=== PATIENT | female | born 1965 ===

== ENCOUNTER 2017-06-29 12:58 | Emergency (ER) | payer OTHER ==
[2017-06-29 13:02] VITALS: RESP 18
[2017-06-29 13:40] LABS: BASO # 0.1 K/uL (0.0-0.2); BASO % 0.8 % (0.0-2.0); EOS # 0.2 K/uL (0.0-0.7); EOS % 2.5 % (0.0-4.0); LYMPH # 1.6 K/uL (1.0-4.3); MEAN CELL VOLUME 88.8 fL (81.0-99.0); MEAN CORPUSCULAR HEMOGLOBIN 30.4 pg (27.0-31.0); MEAN CORPUSCULAR HGB CONC 34.3 g/dL (33.0-37.0); MEAN PLATELET VOLUME 9.3 fL (7.2-11.7); MONO # 0.8 K/uL (0.0-0.8); MONO % 10.4 % (0.0-10.0); NEUT # 4.7 K/uL (1.8-7.0); NEUT % 64.3 % (50.0-75.0); RBC 4.93 Mil/uL (3.80-5.20); RED CELL DISTRIBUTION WIDTH 14.2 % (11.5-14.5); WHITE BLOOD COUNT 7.4 K/uL (4.8-10.8)
[2017-06-29 13:51] LABS: ALB/GLOB RATIO 1.2 (1.0-2.1); ALBUMIN 4.7 g/dL (3.5-5.0); ALT/SGPT 17 U/L (9-52); AST/SGOT 24 U/L (14-36); BLOOD UREA NITROGEN 11 mg/dL (7-17); CALCIUM 9.5 mg/dl (8.6-10.4); GFR AFRICAN-AMERICAN > 60; GFR NON-AFRICAN AMERICAN > 60; LIPASE 106 U/L (23-300)
[2017-06-29 13:56] LABS: HCG,QUALITATIVE URINE NEGATIVE (NEGATIVE); SQUAMOUS EPITHIAL < 1 /hpf (0-5); URINE BACTERIA RARE (<OCC); URINE BILIRUBIN NEGATIVE (NEGATIVE); URINE BLOOD NEGATIVE (NEGATIVE); URINE CLARITY Clear (Clear); URINE COLOR Straw (YELLOW); URINE GLUCOSE (UA) NORMAL (Normal); URINE LEUKOCYTE ESTERASE NEG Leu/uL (Negative); URINE PROTEIN NEGATIVE (NEGATIVE); URINE UROBILINOGEN NORMAL mg/dL (0.2-1.0)
--- NOTE | 2017-06-29 14:13 | C.PDOC ---
History Of Present Illness 52 year old female presents to the emergency department with complaints of "crampy" LLQ abdominal pain for a week. Patient reports that she took one Motrin yesterday with mild improvement, but denies symptoms of constipation. Time Seen by Provider: 06/29/17 13:18 Chief Complaint (Nursing): Abdominal Pain History Per: Patient History/Exam Limitations: no limitations Onset/Duration Of Symptoms: Days (1 week) Current Symptoms Are (Timing): Better (mild improvement after taking Motrin.) Location Of Pain/Discomfort: LLQ Quality Of Discomfort: Cramping Associated Symptoms: denies: Constipation Alleviating Factors: OTC Meds (Motrin) Past Medical History Reviewed: Historical Data, Nursing Documentation, Vital Signs Vital Signs: Last Vital Signs Temp 98 F 06/29/17 14:25 Pulse 78 06/29/17 14:25 Resp 18 06/29/17 14:25 BP 126/76 06/29/17 14:25 Pulse Ox 98 06/29/17 14:25 - Medical History PMH: Gastritis Surgical History: Appendectomy Family History: States: No Known Family Hx - Social History Hx Alcohol Use: No Hx Substance Use: No - Immunization History Hx Tetanus Toxoid Vaccination: No Hx Influenza Vaccination: No Hx Pneumococcal Vaccination: No Review Of Systems Except As Marked, All Systems Reviewed And Found Negative. Gastrointestinal: Positive for: Abdominal Pain (LLQ ). Negative for: Constipation Physical Exam - Physical Exam Appears: Non-toxic, No Acute Distress Cardiovascular: Rhythm Regular Respiratory: Normal Breath Sounds Gastrointestinal/Abdominal: Other (dull to percussion, left atympanic in epigastrium. ) ED Course And Treatment - Laboratory Results Result Diagrams: 06/29/17 13:28 06/29/17 13:28 Lab Interpretation: Normal (ua neg.) Urine POC: Negative O2 Sat by Pulse Oximetry: 100 (RA) Pulse Ox Interpretation: Normal - Radiology CXR: Interpreted by Me CXR Interpretation: Yes: No Acute Disease - Other Rad abd x 2 X-Ray: Interpreted by Me (+FOS) Reevaluation Time: 14:12 Reassessment Condition: Unchanged Medical Decision Making Medical Decision Making: chronic constipation Plan: CMP Lipase CBC w/Differential Obstructive Series HCG Urinalysis Disposition Doctor Will See Patient In The: Office Counseled Patient/Family Regarding: Studies Performed, Diagnosis - Disposition Referrals: [facility] [Outside] [facility] [Outside] [facility] [Outside] Disposition: HOME/ ROUTINE Disposition Time: 14:13 Condition: GOOD Additional Instructions: lovelace colon grueso esta LLENO de excremento! marvin un purgante ahora (Citrato de magnesio) y re-evalua lovelace molestia del abdomen despues de usar el jus 2-3 veces Cambios de dieta: come 7 verduras y frutas crudas diarios- shane ensalada cuenta martha dos efrain: arroz, mahan, habichuelas, yuca, platanos/bananas- provocan mucho estrenemiento marvin mas agua- se esuavisa los heces Camina mas: ejercisio 45 minutes/savage x 5 jaffe por semana Se aumenta la motilidada de los intestinos. Sigue en nuestro [facility] ([facility]) para considerar referencia al Gastroenterologo y Colonoscopia martha indicado. Prescriptions: Magnesium Citrate [Citrate of Magnesia] 300 ml PO ONCE PRN #1 solution PRN Reason: Constipation Instructions: Constipation, Adult (DC) Forms: [employer] (Nepali) Print Language: UGANDAN - Clinical Impression Clinical Impression: Colicky LLQ abdominal pain - Scribe Statement The provider has reviewed the documentation as recorded by the Scribe Booker Beard Provider Attestation: All medical record entries made by the Scribe were at my direction and personally dictated by me. I have reviewed the chart and agree that the record accurately reflects my personal performance of the history, physical exam, medical decision making, and the department course for this patient. I have also personally directed, reviewed, and agree with the discharge instructions and disposition.
[2017-06-29 14:26] VITALS: BP 126/76; PULSE 78; TEMP 98
[2017-06-29 15:04] VITALS: O2SAT 100
--- NOTE | 2017-06-29 15:08 | RAD ---
PROCEDURE: Radiographs of the chest and abdomen (obstructive series) HISTORY: abd pain COMPARISON: No prior. TECHNIQUE: AP radiograph of the chest, with upright and supine radiographs of the abdomen. FINDINGS: CHEST: Lungs: Clear. Cardiovascular: Normal size heart. No pulmonary vascular congestion. Pleura: No pleural fluid. No pneumothorax. Other findings: None. ABDOMEN AND PELVIS: Bowel: Prominent amount of retained colonic stool. Unremarkable bowel gas pattern. No evidence of mechanical obstruction. Free air: None. Bones: Unremarkable. Other findings: None. IMPRESSION: Unremarkable radiographs of chest and abdomen. Prominent amount of retained colonic stool. No evidence of mechanical bowel obstruction.
== END 2017-06-29 14:25 | disposition home or self-care (01) ==
LOC: C.ER 12:58
DX: R10.32 Left lower quadrant pain (principal)